=== PATIENT | female | born 1935 | race Two or more races ===

== ENCOUNTER 2017-08-27 13:35 | Inpatient (IN) | payer SELFPAY ==
[2017-08-27 22:42] VITALS: BP 92/65
--- NOTE | 2017-08-28 03:13 | NUR ---
PT RECEIVED ONE UNIT OF BLOOD WITHOUT ISSUE. DURING THE FIRST 15 MINUTES OF THE SECOND UNIT, PT'S IV BLEW AND IT STARTED TO LEAK ALL OVER THE PT'S BED. PUT TRANSFUSION ON HOLD, AND PT'S IV RESITED IN LEFT WRIST. TRANSFUSION THEN RESTARTED WITHOUT ISSUE. PT TOLERATED WELL. DTR CONTINUES TO SIT AT THE BEDSIDE. WILL CONT TO MONITOR.
[2017-08-28 04:04] VITALS: BP 157/65
[2017-08-28 04:22] LABS: BASOPHILS 1.2 % (0-2); EOSINOPHILS 3.3 % (0-7); HEMOGLOBIN 7.9 g/dL (12-16); MCH 22.3 pg (26.0-34.0); MCHC 29.3 g/dL (31.0-37.0); MCV 76.1 fL (80.0-100.0); MEAN PLATELET VOLUME 9.9 fL (7.4-10.4); MONOCYTES 9.9 % (2-11); NEUTROPHILS 41.6 % (40-80); RBC 3.55 10x6/uL (4.00-5.40); RDW 19.5 % (11.5-14.5); WBC 3.3 10x3/uL (4.8-10.8)
[2017-08-28 04:41] LABS: % SATURATION 17 % (15-55); IRON 82 ug/dl (35-150); PLATELET COUNT 100 10x3/uL (130-400); TOTAL IRON BIND CAPACITY 469 ug/dl (260-445); UNSAT IRON BIND CAPACITY 387 ug/dl (150-375)
[2017-08-28 05:00] LABS: ANION GAP 10.2 mmol/L (8-16); CALCIUM 8.7 mg/dL (8.5-10.1); CARBON DIOXIDE 29.5 mmol/L (21.0-32.0); CREATININE - SERUM 0.9 mg/dL (0.6-1.3); POTASSIUM - SERUM 3.7 mmol/L (3.5-5.1)
--- NOTE | 2017-08-28 05:35 | NUR ---
PT'S DTR HAS BEEN AT THE PT'S BEDSIDE ALL NIGHT. PT RECEIVED 2 UNITS OF PRBCS PER MD ORDER FOR ANEMIA W/ A DOSE OF LASIX IN BETWEEN UNITS. THIS AM, LABS SHOW MILD IMPROVEMENT. PT HAS ORDER FOR STOOL GUAIAC, BUT PT HAS NOT HAD A BM DURING MY SHIFT; THEREFORE, IT HAS NOT BEEN COLLECTED. 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 PT ACTS IF SHE IS IN A GREAT DEAL OF PAIN. PT MOANS EVEN WHEN TAKING HER BLOOD PRESSURE. PER DTR, THIS IS NORMAL BEHAVIOR FOR THE PATIENT. SHE ALWAYS HAS GENERALIZED PAIN. DENIES ANY NEEDS. WILL CONT TO MONITOR.
--- NOTE | 2017-08-28 07:06 | NUR ---
PT REFUSING SCDS D/T COMPLAINT OF SUBJECTIVE DISCOMFORT.
--- NOTE | 2017-08-28 07:40 | NUR ---
AM ROUNDS- PT IN BED, DAUGHTER AT BEDSIDE STATES THAT PT DID NOT GET ANY SLEEP LAST NIGHT, PT VERY TIRED THIS AM. DENIES ANY NEEDS AT THIS TIME. CALL LIGHT IN REACH, NAD NOTED, WILL CONTINUE TO MONITOR.
[2017-08-28 08:11] VITALS: BP 166/61
--- NOTE | 2017-08-28 08:20 | NUR ---
AM MEDS GIVEN AT THIS TIME. INFORMED PT AND PT'S DAUGHTER ABOUT ORDER FOR 2UNITS OF PRBCS TO BE INFUSED TODAY. PT DENIES ANY NEEDS AT THIS TIME. CALL LIGHT IN REACH, DAUGHTER AT BEDSIDE, NAD NOTED, WILL CONTINUE TO MONITOR.
--- NOTE | 2017-08-28 11:00 | NUR ---
FIRST UNIT OF PRBCS STARTED INFUSING, TO LT HAND, VITAL SIGNS STABLE. PT MOANING AND GRONING WHEN BLOOD PRESSURE MACHINE TAKES HER BP, OR WHEN YOU TOUCH HER. PT DENIES ANY NEEDS AT THIS TIME. CALLL LIGHT IN REACH, DAUGHTER AT BEDSIDE, NAD NOTED, WILL CONTINUE TO MONITOR.
--- NOTE | 2017-08-28 11:17 | NUR ---
VITAL SIGNS STILL STABLE. PT TOLERATING INFUSION WELL, PT TRYING TO GET SOME SLEEP, IN BED WITH EYES CLOSED, AROUSES TO VOICE. INFOMRED PT'S DAUGHTER ABOUT THE NEED FOR STOOL SAMPLE, LEFT COLLECTION CONTAINER AT BEDSIDE. DAUGHTER STATED THAT PT WILL PROBABLY WILL NOT HAVE BM TODAY. CALL LIGHT IN REACH, NAD NOTED, WILL CONTINUE TO MONITOR.
[2017-08-28 11:55] VITALS: BP 145/57
--- NOTE | 2017-08-28 13:30 | NUR ---
PT'S FAMILY CONCERN ABOUT PT BEING LETHARGIC THEY STATED THAT SHE DOES NOT LOOK RIGHT. PT'S VITAL SIGNS STABLE, NAD NOTED. DAUGHTER AT BEDSIDE STATED THAT PT HAS NO HAD ANY SLEEP ALL NIGHT. FAMILY AND THIS NURSE CLEAN PT UP FROM INCONT EPISODE. PT WAS ABLE TO STAND UP TO SIDE OF BED X2 ASSIST TO CHANGE BED. REPOSITIONED PT BACK IN BED, PT DENIES ANY NEEDS AT THIS TIME. CALL LIGHT IN REACH, FAMILT AT BEDSIDE, NAD NOTED, WILL CONTINUE TO MONITOR.
[2017-08-28 13:51] VITALS: BMI 29.2
--- NOTE | 2017-08-28 16:47 | NUR ---
SECOND UNIT OF PRBCS STARTED INFUSING, VITAL SIGNS STABLE. 20MG OF LASIX GIVEN IN BETWEEN UNITS. PT MORE ALERT. DENIES ANY NEEDS AT THIS TIME. CALL LIGHT IN REACH, DAUGHTER AT BEDSIDE, NAD NOTED, WILL CONTINUE TO MONITOR.
[2017-08-28] MEDS ORDERED: GLIPIZIDE10 MG PO (16:49)
[2017-08-28] MEDS ORDERED: LANOXIN125 MCG PO (16:50)
--- NOTE | 2017-08-28 18:05 | NUR ---
BLOOD STILL INFUSING AT THIS TIME. PT TOLERATING TRANFUSION WELL, WAS AWAKE ENOUGH TO EAT DINNER. PT STILL HAS NOT HAD BM. DENIES ANY NEEDS AT THIS TIME. CALL LIGHT IN REACH, NAD NOTED, DAUGHTER AT BEDSIDE, WILL CONTINUE TO MONITOR.
[2017-08-28 19:00] VITALS: BP 141/70
--- NOTE | 2017-08-28 19:10 | NUR ---
ROUNDING NOTE: PT WITH NUMEROUS FAMILY MEMBERS AT THE BEDSIDE. PT IS LAYING IN BED COMFORTABLY. PT'S DTR IS ACTING AT HOSPITAL ORDERLY FOR PATIENT. PT RECEIVED ANOTHER 2 UNITS OF BLOOD TODAY SINCE HER H&H DIDN'T IMPROVE SIGNIFICANTLY AFTER THE 1ST 2 UNITS THAT WERE GIVEN YESTERDAY. FAMILY WONDERING WHEN PT CAN BE D/C'D HOME. I EXPLAINED THAT THE DOCTOR IS WAITING FOR HER ANEMIA TO IMPROVE/RESOLVE. NO NEEDS AT THIS TIME. WILL CONT TO MONITOR.
[2017-08-29] VITALS: BP 148/79
[2017-08-29 04:00] VITALS: BP 150/68
[2017-08-29 06:06] LABS: ANION GAP 8.7 mmol/L (8-16); CALCIUM 8.7 mg/dL (8.5-10.1); CARBON DIOXIDE 30.5 mmol/L (21.0-32.0); CREATININE - SERUM 0.9 mg/dL (0.6-1.3); POTASSIUM - SERUM 3.2 mmol/L (3.5-5.1)
--- NOTE | 2017-08-29 06:13 | NUR ---
PT HAS BEEN SLEEPING MOST OF THE NIGHT. PT'S DTR REMAINS AT THE BEDSIDE SLEEPING IN A RECLINER. NO NEEDS AT THIS TIME. PT'S DTR IS HOPING THAT PT CAN BE D/C'D HOME TODAY.
--- NOTE | 2017-08-29 06:15 | NUR ---
UNABLE TO COLLECT STOOL SAMPLE DURING MY SHIFT B/C PT DID NOT HAVE A BM.
[2017-08-29 06:37] LABS: BASOPHILS 0.3 % (0-2); EOSINOPHILS 2.6 % (0-7); LYMPHOCYTES 38.8 % (15-50); MCH 23.8 pg (26.0-34.0); MCHC 30.7 g/dL (31.0-37.0); MCV 77.4 fL (80.0-100.0); MONOCYTES 9.7 % (2-11); NEUTROPHILS 48.6 % (40-80); PLATELET COUNT 83 10x3/uL (130-400); RDW 18.9 % (11.5-14.5); WBC 3.1 10x3/uL (4.8-10.8)
[2017-08-29 06:45] LABS: HEMATOCRIT 33.2 % (36.0-48.0); HEMOGLOBIN 10.2 g/dL (12-16); RBC 4.29 10x6/uL (4.00-5.40)
--- NOTE | 2017-08-29 07:24 | NUR ---
AM ROUNDS- PT IN BED, WITH EYES CLOSED, AROUSES TO VOICE EASILY. PT DENIES ANY NEEDS AT THIS TIME. RESP EVEN AND UNLABORED. PT NON VERBAL AT THIS TIME, ONLY SHAKES HEAD YES AND NO. LT HAND IV SL. BED LOW AND WHEELS LOCKED, BEDSIDE RAILS X2, CALL LIGHT IN REACH, DAUGHTER AT BEDSIDE, NAD NOTED, WILL CONTINUE TO MONITOR.
[2017-08-29 07:43] LABS: PLATELET ESTIMATE DECREASED
[2017-08-29 07:45] VITALS: BP 141/63
--- NOTE | 2017-08-29 08:39 | NUR ---
ADMINISTERED MORNING MEDICATIONS, PT IN BED, FIXING TO EAT BREAKFAST. PT MOANING AND GRONING WHEN MOVED IN THE BED. DENIES ANY NEEDS AT THIS TIME. CALL LIGHT IN REACH, DAUGHTER AT BEDSIDE, NAD NOTED, WILL CONTINUE TO MONITOR.
[2017-08-29 12:53] VITALS: BP 130/51
--- NOTE | 2017-08-29 15:20 | NUR ---
CALLED DR. STEINER'S OFFICE AND LEFT [facility] WITH HIS NURSE THAT DR. MENDIETA SAID THAT PT COULD BE D/C TODAY.
[2017-08-29 16:07] VITALS: BP 153/72
--- NOTE | 2017-08-29 17:20 | NUR ---
PAGED DR. STEINER TO PUT ORDERS FOR DISCHARGE.
[2017-08-29] MEDS ORDERED: FERREX 150 PLUS1 CAP PO (17:31)
--- NOTE | 2017-08-29 19:20 | NUR ---
PROVIDED VERBAL AND WRITTEN DISCHARGE TEACHING TO PT AND DAUGHTER, DAUGHTER VERBALIZED UNDERSTANDING REGARDING TEACHING. D/C LT HAND IV, TIP INTACT. PT LEFT UNIT VIA OWN WHEELCHAIR, ACCOMPANIED BY DAUGHTER, NAD NOTED.
== END 2017-08-29 19:42 | disposition home or self-care (01) | DRG 809 ==
LOC: D.ER 13:35 → D.M2 17:48 → OBSVTIME 17:48 → D.M2 17:48
PROVIDERS: ADMIT Family Medicine
DX: D61.818 Other pancytopenia (principal); I42.9 Cardiomyopathy, unspecified; E11.9 Type 2 diabetes mellitus without complications; D64.9 Anemia, unspecified; F03.90 Unspecified dementia, unspecified severity, without behavioral disturbance, psychotic disturbance, mood disturbance, and anxiety; I50.9 Heart failure, unspecified; Z66 Do not resuscitate; I48.2 Chronic atrial fibrillation; I27.20 Pulmonary hypertension, unspecified